=== PATIENT | male | born 1970 | race Caucasian/White ===

== ENCOUNTER 2016-12-19 14:47 | Emergency (ER) | payer OTHER ==
[2016-12-19] MEDS ORDERED: SODIUM CHLORIDE 0.9% 1,000 ML IV ONE ×2 (15:23→16:11)
[2016-12-19] MEDS ORDERED: ACETAMINOPHEN 1,000 MG/100 ML 100 ML IV STA (15:24)
[2016-12-19] MEDS ORDERED: ONDANSETRON 4 MG/2 ML VIAL IVP STA (15:24)
--- NOTE | 2016-12-19 15:28 | ED Physician Documentation ---
PD HPI ABD PAIN - Stated complaint Stated Complaint: VOMITTING 24HRS - Chief complaint Chief Complaint: Abd Pain - History obtained from History obtained from: Patient - History of Present Illness Timing - onset: Other (Relatively healthy 46-year-old gentleman with history of very occasional and remote paroxysmal atrial fibrillation, not currently under any medical treatment developed significant chills 3 nights ago. He thinks that was related to eating bread the night before. He had chills for several days as well as fatigue and malaise and since yesterday has been vomiting quite a bit. There is some diarrhea with it as well. No hematochezia. He has a mild cough. No other URI symptoms. No abdominal pain. No rash. No sick contacts or recent international travel.) Review of Systems Constitutional: reports: Fever, Chills, Fatigue, Sweats Nose: denies: Rhinorrhea / runny nose, Congestion Throat: reports: Sore throat (Only from vomiting) Cardiac: denies: Chest pain / pressure, Palpitations, Pedal edema, Calf pain Respiratory: reports: Cough (Mild). denies: Dyspnea, Hemoptysis, Wheezing PD PAST MEDICAL HISTORY - Past Medical History Past Medical History: Yes Cardiovascular: Atrial fibrillation - Past Surgical History Past Surgical History: Yes - Present Medications Home Medications: Ambulatory Orders Medication Instructions Recorded Confirmed Azithromycin [Zithromax] 250 mg PO DAILY #4 tablet 12/19/16 Promethazine [Phenergan] 25 - 50 mg PO Q6H PRN #15 tab 12/19/16 - Allergies Allergies/Adverse Reactions: Allergies Allergy/AdvReac Type Severity Reaction Status Date / Time No Known Drug Allergies Allergy Verified 12/19/16 15:01 - Social History Does the pt smoke?: No Smoking Status: Never smoker Does the pt drink ETOH?: Yes Does the pt have substance abuse?: No - Family History Family history: reports: Non contributory PD ED PE NORMAL - Vitals Vital signs reviewed: Yes (Febrile) - General General: Alert and oriented X 3, No acute distress - HEENT HEENT: PERRL, EOMI, Ears normal - Neck Neck: Supple, no meningeal sign, No bony TTP - Cardiac Cardiac: RRR, No murmur - Respiratory Respiratory: No respiratory distress, Clear bilaterally - Abdomen Abdomen: Normal bowel sounds, Soft, Non tender - Back Back: No CVA TTP, No spinal TTP - Derm Derm: Normal color, Warm and dry, No rash - Extremities Extremities: No deformity, No tenderness to palpate, No edema, No calf tenderness / cord - Neuro Neuro: Alert and oriented X 3, Normal speech - Psych Psych: Normal mood, Normal affect Results - Vitals Vitals: Vital Signs - 24 hr 12/19/16 14:58 Temperature 38.9 C H Heart Rate 97 Respiratory 18 Rate Blood Pressure 147/91 H O2 Saturation 95 Oxygen O2 Source Room air - Labs Labs: Laboratory Tests 12/19/16 12/19/16 12/19/16 15:35 15:35 15:35 WBC 11.2 H RBC 5.36 Hgb 16.1 Hct 45.2 MCV 84.3 MCH 30.0 MCHC 35.6 RDW 13.1 Plt Count 144 MPV 8.2 Neut # 9.8 H Lymph # 0.4 L Hickman # 1.0 Eos # 0.0 Baso # 0.0 Absolute Nucleated RBC 0.01 Nucleated RBCs 0.1 Sodium 130 L Potassium 3.8 Chloride 93 L Carbon Dioxide 25 Anion Gap 12.0 BUN 23 H Creatinine 1.3 H Estimated GFR (MDRD) 59 L Glucose 146 H Calcium 9.4 Total Bilirubin 2.1 H AST 25 ALT 28 Alkaline Phosphatase 66 Total Protein 8.5 H Albumin 4.3 Globulin 4.2 Albumin/Globulin Ratio 1.0 Lipase 21 L Infectious Hickman Assay NEGATIVE Influenza A (Rapid) Influenza B (Rapid) Influenza Types A,B Ag 12/19/16 15:35 WBC RBC Hgb Hct MCV MCH MCHC RDW Plt Count MPV Neut # Lymph # Hickman # Eos # Baso # Absolute Nucleated RBC Nucleated RBCs Sodium Potassium Chloride Carbon Dioxide Anion Gap BUN Creatinine Estimated GFR (MDRD) Glucose Calcium Total Bilirubin AST ALT Alkaline Phosphatase Total Protein Albumin Globulin Albumin/Globulin Ratio Lipase Infectious Hickman Assay Influenza A (Rapid) Negative Influenza B (Rapid) Negative Influenza Types A,B Ag - - Rads (name of study) 2v chest Radiology: EMP read contemporaneously (Retrocardiac pneumonia) PD MEDICAL DECISION MAKING - ED course ED course: 46-year-old gentleman presents with nonspecific symptoms of infection with some vomiting and diarrhea, he has laboratory evidence of dehydration and is found to have a clear retrocardiac pneumonia on x-ray which is treated with antibiotics and IV fluids. The patient and family were counseled as to the diagnosis and need for follow- up. I counseled the patient with regard to signs and symptoms that would necessitate an urgent reevaluation in the emergency department. They understand they are welcome to return at any time if worse or if not improving as expected. This document was made in part using voice recognition software. While efforts are made to proofread this documents, sound alike and grammatical errors may occur. Departure - Departure Disposition: 01 Home, Self Care Clinical Impression: Dehydration Pneumonia Qualifiers: Pneumonia type: due to unspecified organism Laterality: left Lung location: lower lobe of lung Qualified Code(s): J18.1 - Lobar pneumonia, unspecified organism Condition: Good Record reviewed to determine appropriate education?: Yes Instructions: ED Dehydration, Pneumonia Dc Prescriptions: Promethazine [Phenergan] 25 - 50 mg PO Q6H PRN #15 tab PRN Reason: Nausea / Vomiting Azithromycin [Zithromax] 250 mg PO DAILY #4 tablet Comments: Follow-up with your physician on return home. He/she may want to get a repeat chest x-ray in 4-6 weeks to make sure that the pneumonia has resolved. Return if worse. Drink plenty of fluids. Tylenol or ibuprofen as needed for pain. Your blood pressure was elevated today on check into the emergency department. This does not mean that you have hypertension, it is a common phenomenon to come to the emergency department and have elevated blood pressure. I recommend that she see her primary care physician within the week to have it rechecked when you are feeling better. Forms: Activity restrictions
[2016-12-19] MEDS ORDERED: ACETAMINOPHEN 1,000 MG/100 ML 100 ML IV ONE (15:32)
[2016-12-19] MEDS ORDERED: ONDANSETRON 4 MG/2 ML VIAL ONE (15:32)
[2016-12-19 15:47] LABS: BASOPHILS % (AUTO) 0.3 %; HCT - HEMATOCRIT 45.2 % (42.0-52.0); HGB - HEMOGLOBIN 16.1 g/dL (14.0-18.0); LYMPHOCYTES # (AUTO) 0.4 10^3/uL (1.5-3.5); LYMPHOCYTES % (AUTO) 3.2 %; MEAN CORPUSCULAR HGB CONC 35.6 g/dL (32.0-36.0); MEAN CORPUSCULAR VOLUME 84.3 fL (80.0-94.0); MEAN PLATELET VOLUME 8.2 fL (7.4-11.4); MONOCYTES % (AUTO) 8.7 %; NEUTROPHILS # (AUTO) 9.8 10^3/uL (1.5-6.6); NEUTROPHILS % (AUTO) 87.8 %; NUCLEATED RED BLOOD CELLS AUTO 0.1 /100WBC; RED BLOOD COUNT 5.36 10^6/uL (4.70-6.10); RED CELL DISTRIBUTION WIDTH 13.1 % (12.0-15.0); UNCORRECTED WHITE BLOOD COUNT 11.2 x10^3/uL; WHITE BLOOD COUNT 11.2 x10^3/uL (4.8-10.8)
[2016-12-19 15:56] LABS: BILIRUBIN,TOTAL 2.1 mg/dL (0.2-1.0); CALCIUM 9.4 mg/dL (8.5-10.3); CREATININE 1.3 mg/dL (0.6-1.2); POTASSIUM 3.8 mmol/L (3.5-5.0); TOTAL PROTEIN 8.5 g/dL (6.7-8.2)
[2016-12-19 16:11] LABS: MONO NEG QC NEGATIVE (Negative); MONO POS QC POSITIVE (Positive)
--- NOTE | 2016-12-19 16:22 | XRAY Preliminary Report ---
Exam: XR Chest 2 View PA/LAT IMPRESSION: Retrocardiac infiltrate. [facility] SITE ID: [id number]
--- NOTE | 2016-12-19 16:25 | XRAY Report ---
EXAM: CHEST RADIOGRAPHY EXAM DATE: 12/19/2016 04:01 PM. CLINICAL HISTORY: FUO. COMPARISON: None. TECHNIQUE: 2 views. FINDINGS: Lungs/Pleura: There is a retrocardiac infiltrate present. No effusion or pneumothorax. Mediastinum: Heart and mediastinal contours are unremarkable. Other: None. IMPRESSION: Retrocardiac infiltrate. [facility] Referring Provider Line: [phone] SITE ID: [id number]
[2016-12-19] MEDS ORDERED: cefTRIAXone 1 GM in SODIUM CHLORIDE 0.9% MINIBAG 100 ML IV STA (16:31)
[2016-12-19] MEDS ORDERED: AZITHROMYCIN 250 MG TABLET PO STA (16:31)
[2016-12-19] MEDS ORDERED: cefTRIAXone 1 GM VIAL ONE (16:41)
[2016-12-19] MEDS ORDERED: AZITHROMYCIN 250 MG TABLET PO ONE (16:41)
[2016-12-19 17:33] VITALS: BP 125/70
== END 2016-12-19 17:39 | disposition home or self-care (01) ==
LOC: ED 14:47
DX: E86.0 Dehydration (principal); J18.9 Pneumonia, unspecified organism
CPT/HCPCS: 36415; 71020; 80053; 83690; 85025; 86308; 87040; 87275; 87276; 96365; 96367; 96375; 99284; A9270; J0131